=== PATIENT | male | born 1975 | race Caucasian/White ===

== ENCOUNTER 2020-04-12 02:30 | Emergency (ER) | payer OTHER, SELFPAY ==
--- NOTE | ~2020-04-12 | CT_ITS ---
EXAMINATION: CT abdomen pelvis wo con EXAM DATE: 04/12/2020 04:02 INDICATION: Abdominal pain for a day. TECHNIQUE: Spiral CT of the abdomen and pelvis was performed without contrast. Axial, coronal and sag ittal images were reviewed. The dose-length product (DLP) for this examination was 511.61 mGy-cm. T he exposure was tailored according to patient size (auto mA exposure control), and iterative reconstr uction (ASIR) was used as additional dose reduction technique. There is no prior study for compariso n. FINDINGS: There is no nephrolithiasis or hydronephrosis. The prostate is unremarkable. The bladder is unremarkable. Geographic shaped 2 cm region in the right liver lobe peripherally most likely foca l region of hepatic steatosis The spleen, adrenal glands and pancreas are unremarkable. Gallbladder is unremarkable. No biliary obstruction. There is no retroperitoneal or pelvic lymphadenopathy. T here is mild scattered arteriosclerotic disease. The appendix is not positively visualized. There is no pericecal inflammatory change to suggest appe ndicitis. The stomach and small bowel are unremarkable. There is expected amount of colonic stool. No free intraperitoneal gas. The heart is normal in size. There are no pericardial or pleural e ffusions. The lung bases are unremarkable. There are no osteoblastic or osteolytic lesions identifi ed. There is chronic L5 spondylolysis with a few millimeters anterolisthesis L5 on S1. IMPRESSION: 1. No nephrolithiasis, hydronephrosis or acute intra-abdominal findings. Reviewed, dictated and finalized at location . ESSIONAL PROGRAMMER ANALYST
--- NOTE | ~2020-04-12 | CT_ITS ---
EXAMINATION: CT brain wo con DATE: 04/12/2020 08:14 INDICATION: Dizziness, vomiting, numbness and tingling. TECHNIQUE: Computed tomography (CT) of the head was performed without intravenous contrast. Sagittal and coronal reconstructions were performed. The mA was adjusted according to patient size. Iterative reconstruction technique was employed. The dose-length product was 605.33 mGy-cm. COMPARISON: None FINDINGS: No acute intracranial hemorrhage, acute infarction or abnormal extra axial fluid collection. Ventricl es are normal and symmetric. No mass/mass effect. Moderate mucosal thickening throughout the paranasa l sinuses. Small right mastoid effusion. The visualized portions of the orbits are normal. IMPRESSION: 1. No acute intracranial process. Reviewed, dictated and finalized at location A. ER PICKER
[2020-04-12 02:30] VITALS: BP 147/118; PULSE 96; RESP 20; TEMP 36.9; O2SAT 97
--- NOTE | 2020-04-12 02:47 | ED.ABDPAIN ---
HPI - Abdominal Pain General Chief Complaint: Abdominal Pain Time Seen by Provider: 04/12/20 02:35 Source: patient Mode of arrival: ambulatory Limitations: no limitations History of Present Illness HPI narrative: Patient comes in with complaints of abdominal pain. This is in the right flank, severe and ongoing since about 11pm. He is a poor historian not answering questions well, mostly just moaning. Related Data Home Medications Medication Instructions Recorded Confirmed No Home Medications 04/12/20 04/12/20 Allergies Allergy/AdvReac Type Severity Reaction Status Date / Time No Known Allergies Allergy Unverified 03/13/18 04:56 Review of Systems Constitutional: Constitutional: Reports no additional constitutional complaints Eyes: Eyes: Reports no additional eye complaints ENT: Reports system reviewed and no additional complaints, except as documented Cardiovascular: Cardiovascular: Reports no additional cardiovascular complaints Respiratory: Respiratory: Reports no additional respiratory complaints Gastrointestinal: Gastrointestinal: Reports no additional gastrointestinal complaints Genitourinary: Genitourinary: Reports no additional male genitourinary complaints Musculoskeletal: Musculoskeletal: Reports no additional musculoskeletal complaints Integumentary/Breasts: Skin/Breast: Reports system reviewed and no additional complaints, except as docu Neurologic: Reports system reviewed and no additional complaints, except as documented Psychiatric: Psychiatric: Reports no additional psychiatric complaints Endocrine: Endocrine: Reports no additional endocrine complaints Hematologic/Lymphatic: Hematologic/Lymphatic: Reports no additional hematologic/lymphatic complaints Allergic/Immunologic: Allergic/Immunologic: Reports no additional allergic/immunologic complaints [facility] Past Medical History Medical History (Updated 04/12/20 @ 06:40 by Maximilian Christine MD) No significant medical problems Surgical History Surgical History No significant past surgical history Family History Family History (Updated 04/12/20 @ 04:19 by Maximilian Christine MD) Father Acute myocardial infarction Social History Social History (Updated 04/12/20 @ 04:20 by Maximilian Christine MD) Smoking status: Current every day smoker Tobacco type: cigarettes Alcohol intake: current Substance use: never Exam Const: General: no acute distress and alert HENMT: Head: normal to inspection Eyes: Conjunctivae: conjunctivae normal Neck: Neck: normal visual inspection Chest: Chest palpation & inspection: normal inspection of the chest Resp: Effort & Inspection: normal respiratory effort Auscultation: clear to auscultation bilaterally Cardio: Rate: regular rate Rhythm: regular rhythm GI: GI Palp: Yes Soft to palpation Other: nontender Skin: General skin exam: normal color Neuro: General: patient oriented x3 Speech: Abnormal speech present Extrem: General: normal to inspection Psych: Appearance: grossly normal Mental Status: mental status grossly normal Thought content: Yes Normal thought content present Course Course Emergency Course: labs and CT abdomen and pelvis were reviewed. He was given 2 liters of fluid for his elevated lactic acid. He appears to be improved. Vital Signs Vital signs: Vital Signs Temperature 36.9 C 04/12/20 02:30 Pulse Rate 96 04/12/20 02:30 Respiratory Rate 20 04/12/20 02:30 Blood Pressure 147/118 H 04/12/20 02:30 Pulse Oximetry 97 04/12/20 02:30 Temperature 36.9 C 04/12/20 02:30 Pulse Rate 96 04/12/20 02:30 Respiratory Rate 20 04/12/20 02:30 Blood Pressure 147/118 H 04/12/20 02:30 Pulse Oximetry 97 04/12/20 02:30 MDM - Abdominal Pain Lab Data Result diagrams: 04/12/20 03:49 04/12/20 03:49 Labs: Lab Results 04/12/20 04/12/20 04/12/20 Range/Units 03:4
[2020-04-12] MEDS: KETOROLAC 30 MG/ML VIAL (*BKC) IV PUSH (02:49)
[2020-04-12] MEDS: ONDANSETRON INJ 4 MG/2 ML VIAL IV PUSH (02:59)
[2020-04-12] MEDS: HYDROmorphone HCL INJ (*CRX) 2 MG/ML VIAL 1 MG IV PUSH (03:24)
[2020-04-12 03:57] LABS: Basophils Absolute Auto 0.06 K/mm3 (0.00-0.10); Basophils Percent Auto 0.5 % (0.0-1.0); Eosinophils Absolute Auto 0.17 K/mm3 (0.02-0.50); Eosinophils Percent Auto 1.4 % (1.0-6.0); Hematocrit 45.4 % (40.0-54.0); Hemoglobin 15.8 g/dL (14.0-18.0); Immature Granulocyte Absolute 0.05 K/mm3 (0.00-0.00); Immature Granulocyte Percent A 0.4 % (0.0-0.0); Lymphocytes Absolute Auto 1.71 K/mm3 (1.10-4.50); Lymphocytes Percent Auto 13.8 % (18.0-42.0); Mean Corpuscular HGB Conc 34.8 g/dL (32.0-36.0); Mean Corpuscular Hemoglobin 30.6 pg (27.0-31.0); Mean Corpuscular Volume 87.8 fL (78.0-102.0); Mean Platelet Volume 9.8 fl (8.7-11.0); Monocytes Absolute Auto 0.77 K/mm3 (0.10-0.90); Monocytes Percent Auto 6.2 % (2.0-11.0); Neutrophils Absolute Auto 9.7 K/mm3 (1.7-7.2); Neutrophils Percent Auto 77.7 % (50.0-70.0); Platelet Count Result 308 K/mm3 (150-420); Red Blood Count 5.17 M/mm3 (4.70-6.10); Red Cell Distribution Width 12.8 % (11.6-14.4); White Blood Count 12.4 K/mm3 (4.8-10.8)
[2020-04-12 04:12] LABS: Alanine Aminotransferase 36 U/L (16-63); Albumin Level 3.8 g/dL (3.4-5.0); Alkaline Phosphatase 55 U/L (46-116); Anion Gap 11 mmol/L (8-16); Aspartate Amino Transferase 14 U/L (15-37); Bilirubin,Total 0.3 mg/dL (0.00-1.00); Blood Urea Nitrogen 14 mg/dL (7-18); Calcium 8.8 mg/dL (8.5-10.1); Carbon Dioxide 24 mmol/L (21-32); Chloride 104 mmol/L (98-108); Estimated Glomerular Filt Rate > 60; Glucose 113 mg/dL (70-99); Osmolality Calculated 289 mOsm/kg (285-295); Potassium 3.5 mmol/L (3.5-5.1); Sodium 139 mmol/L (136-145); Total Protein 7.2 g/dL (6.4-8.2)
[2020-04-12 04:52] LABS: Ethanol 3 mg/dL (0-6); Lipase 100 U/L (73-393)
--- NOTE | 2020-04-12 04:53 | PC.NURSE ---
pt crawled out of bed, drinking from faucet after told nothing to et or drink. assisted back to bed.
--- NOTE | 2020-04-12 04:54 | PC.NURSE ---
pt states last meal was roaman noodles, spam and oatmeal cookies. asked where pt sleeps, states does it matter .
[2020-04-12 05:00] LABS: Lactic Acid Reflex 3.3 mmol/L (0.4-2.0)
[2020-04-12 05:03] LABS: Add Urine Microscopic? YES; Appearance Urine Clear (Clear); Bilirubin Urine Negative (Negative); Blood Urine Negative (Negative); Color Urine Yellow (Yellow); Glucose Urine UA Negative (Negative); Ketones Urine Trace (Negative); Leukocyte Esterase Ur Negative (Negative); Nitrate Urine Negative (Negative); Protein Urine 1+ (Negative); pH Urine >=9.0 (5.0-8.0)
[2020-04-12 05:08] LABS: Amphetamine Screen Urine Negative (Negative); Barbiturate Screen Urine Negative (Negative); Benzodiazepines Screen Urine Negative (Negative); Cannabinoid Screen Urine Positive (Negative); Cocaine Screen Urine Positive (Negative); Methadone Screen Urine Negative (Negative); Opiate Screen Urine Positive (Negative); Phencyclidine Screen Urine Negative (Negative); RBC Urine 0-2 /hpf (0-2); Squamous Epithelial Cell Urine None seen /hpf (Few); WBC Urine 0-3 /hpf (0-3)
[2020-04-12 05:09] LABS: Bacteria Urine None seen /hpf; Mucus Urine Few /lpf
--- NOTE | 2020-04-12 05:13 | PC.NURSE ---
pt sleeping per cot, no moaning or groaning.
[2020-04-12] MEDS: SODIUM CHLORIDE 0.9% IV 1,000 ML 999 ML IV CONT ×2 (05:29→06:40)
[2020-04-12] MEDS: SODIUM CHLORIDE 0.9% IV 500 ML 999 ML IV CONT (06:36)
--- NOTE | 2020-04-12 06:44 | PC.NURSE ---
REMAINS SLEEPING, OPENS EYES UPON ENTERING ROOM.
[2020-04-12 06:45] VITALS: BP 117/70; PULSE 92; RESP 20; O2SAT 96
--- NOTE | 2020-04-12 07:42 | PC.NURSE ---
SPOKE WITH EMPLOYER/FRIEND. WILL [employer] WITH READY FOR DISCHARGE.
[2020-04-12 07:44] LABS: Reflex Lactic Acid Yes or No Add Lactic
--- NOTE | 2020-04-12 08:06 | PC.NURSE ---
HEAD CT COMPLETED. DRANK 240 WATER WITHOUT EMESIS. CONTINUES WITH ABDOMINAL PAIN , RT FLANK PAIN. STATES HAS FAMILY HISTORY WITH CARDIAC ISSUES.
--- NOTE | 2020-04-12 08:09 | PC.NURSE ---
FOOD TRAY ORDERED
[2020-04-12 08:15] LABS: Lactic Acid 1.4 mmol/L (0.4-2.0)
--- NOTE | 2020-04-12 08:23 | ECG_ITS ---
Measurements Intervals [place] Rate: 70 P: 48 NC: 126 QRS: 59 QRSD: 94 T: 59 QT: 380 QTc: 410 Interpretive Statements SINUS RHYTHM INCOMPLETE RIGHT BUNDLE BRANCH BLOCK BASELINE WANDER- V1-V3 BORDERLINE ECG Electronically Signed On 04-12-2020 9:00:42 FORMAL WEAR RENTAL CLERK by Moises Porter D.O.
--- NOTE | 2020-04-12 08:41 | PC.NURSE ---
PT EATING EGGS , TOAST, COFFEE.
[2020-04-12 08:47] LABS: Troponin I 5.8 ng/L (0.00-60.4)
[2020-04-12 09:50] VITALS: BP 126/85; PULSE 87; RESP 20; TEMP 36.2; O2SAT 98
== END 2020-04-12 09:55 | disposition home or self-care (01) ==
PROVIDERS: Emergency Medicine; Emergency Provider Emergency Medicine
DX: R11.2 Nausea with vomiting, unspecified (principal)
CPT/HCPCS: 36415; 70450; 74176; 80053; 80307; 81001; 83605; 83690; 84484; 85025; 93005; 96361; 96374; 96375; 99283; 99284; J1170; J1885; J2405; J7030; J7040

== ENCOUNTER 2020-04-15 02:09 | Inpatient (IN) | payer OTHER, SELFPAY ==
[2020-04-15] VITALS (16 sets, daily range): BP systolic 112–160; BP diastolic 67–99; PULSE 68–96; RESP 11–22; TEMP 36.1–36.8; O2SAT 96–100; BMI 26.7
--- NOTE | ~2020-04-15 | US_ITS ---
EXAMINATION: US right upper quadrant DATE: 04/15/2020 09:37 INDICATION: Right upper quadrant pain TECHNIQUE: Multiple grayscale and Doppler ultrasound images of the abdomen were obtained. COMPARISON: None available FINDINGS: Bowel gas obscures visualization of the pancreas. The visualized portions of the pancreas a re unremarkable. The liver is normal with normal echogenicity and echotexture. No surface nodularity. Normal hepatopetal flow in the main portal vein. There are multiple stones in the gallbladder. Thick ened gallbladder wall measures up to 6 mm. There is a small amount of pericholecystic fluid. The norm al common bile duct measures 5 mm. Sonographic Polanco sign is positive. IMPRESSION: 1. Cholelithiasis with acute cholecystitis. Reviewed, dictated and finalized at location A. TY ASSOCIATE
--- NOTE | ~2020-04-15 | CT_ITS ---
EXAMINATION: CT abdomen pelvis wo con DATE: 04/15/2020 02:42 INDICATION: Right upper quadrant pain TECHNIQUE: Computed tomography (CT) of the abdomen and pelvis was performed without intravenous contr ast. The dose-length product (DLP) was 507.22 mGy-cm. Automated exposure control and iterative recons truction technique were employed. COMPARISON: 04/12/2020 FINDINGS: Minimal dependent atelectasis is present in the lung bases. The heart size is normal. There is a small sliding hiatal hernia. The liver, spleen, pancreas, and adrenal glands. There is mild gal lbladder wall thickening and mild pericholecystic fat stranding. The kidneys are unremarkable. No pat hologically enlarged abdominal or pelvic lymph nodes are identified. There is no free intraperitoneal gas or evidence of bowel obstruction. There is a small volume of ascites in the pelvis. There are bi lateral L5 pars defects with grade 1 anterolisthesis of L5 on S1. A small fat-containing umbilical he rnia is noted. Bilateral hydroceles are noted. IMPRESSION: 1. CT findings consistent with acute cholecystitis. Reviewed, dictated and finalized at location A. RIFUGAL OPERATOR
[2020-04-15 02:33] LABS: Basophils Absolute Auto 0.1 K/mm3 (0.0-0.1); Basophils Percent Auto 0.3 % (0.2-1.2); Eosinophils Absolute Auto 0.1 K/mm3 (0-0.3); Eosinophils Percent Auto 0.6 % (0-4.4); Hematocrit 46.2 % (42.0-52.0); Hemoglobin 15.9 g/dL (14.0-18.0); Immature Granulocyte Percent A 0.6 % (0-0.5); Mean Corpuscular HGB Conc 34.4 g/dl (32-36); Mean Corpuscular Hemoglobin 30.7 pg (26-34); Mean Corpuscular Volume 89.2 fl (80-100); Mean Platelet Volume 9.6 fl (7.4-10.4); Monocytes Absolute Auto 1.3 K/mm3 (0.1-0.6); Monocytes Percent Auto 7.3 % (2.6-8.5); Neutrophils Absolute Auto 13.9 K/mm3 (1.3-6.7); Neutrophils Percent Auto 80.2 % (45.5-73.1); Platelet Count Result 260 k/mm3 (150-375); Red Blood Count 5.18 M/mm3 (4.6-6.20); White Blood Count 17.3 K/mm3 (4.5-10.0)
[2020-04-15 02:45] LABS: Lactic Acid Reflex 2.3 mmol/L (0.7-2.1)
[2020-04-15 02:46] LABS: Potassium 3.8 mmol/L (3.4-5.0)
--- NOTE | 2020-04-15 03:00 | PC.NURSE ---
RN in to medicate pt. Pt. told RN to hurry up. RN informed Pt. that I am going as fast as I can. I also informed pt. he did not need to talk to this RN this way. ED registration in to ask pt. questions. Pt. states It's all in the chart. Come on I can't keep doing this. RN informed pt. that his chart is not up to date and that he needs to answer all of the questions as best as he can. Pt unwilling to cooperate or answer questions appropriately.
[2020-04-15] MEDS: SODIUM CHLORIDE 0.9% IV 1,000 ML 999 ML IV CONT (03:02)
[2020-04-15] MEDS: KETOROLAC 30 MG/ML VIAL (*BKC) IV PUSH (03:03)
[2020-04-15] MEDS: MORPHINE SULFATE (*CRX) 4 MG/ML INJ IV PUSH (03:03)
[2020-04-15] MEDS: ONDANSETRON INJ 4 MG/2 ML VIAL IV PUSH (03:07)
[2020-04-15 03:16] LABS: Alanine Aminotransferase 39 U/L (4-50); Albumin Level 4.1 g/dL (3.5-5.1); Alkaline Phosphatase 60 U/L (38-126); Anion Gap 11 mmol/L (8-16); Aspartate Amino Transferase 37 U/L (17-59); Bilirubin,Total 0.9 mg/dL (0.2-1.3); Blood Urea Nitrogen 16 mg/dL (9-20); Calcium 9.1 mg/dL (8.4-10.2); Carbon Dioxide 25 mmol/L (22-30); Chloride 101 mmol/L (98-107); Estimated Glomerular Filt Rate > 60; Glucose 103 mg/dL (75-110); Sodium 137 mmol/L (137-145)
--- NOTE | 2020-04-15 03:30 | PC.NURSE ---
Pt. refuses to provide urine sample
[2020-04-15] MEDS: HYDROmorphone HCL INJ (*CRX) 1 MG/ML SYR IV PUSH ×2 (03:41→10:40)
[2020-04-15 03:51] LABS: Lipase 29 U/L (23-300)
--- NOTE | 2020-04-15 04:03 | ED.GENADULT ---
HPI - General Adult General Chief complaint: Back Pain/Injury Stated complaint: flank pain Time Seen by Provider: 04/15/20 02:12 History of Present Illness HPI narrative: Patient is a 44-year-old gentleman who presents emerged part with chief complaint of right-sided abdominal pain. Patient states the pain is severe and states is not improved by anything. The patient states he was seen at [place] recently had a CT scan and laboratory studies done at that time and was told that there was nothing wrong with him. Patient states he has been having nausea and vomiting reports severe pain that is not improved by anything. The patient denies fever denies chills denies diarrhea. Related Data Home Medications Medication Instructions Recorded Confirmed No Home Medications 04/12/20 04/12/20 Allergies Allergy/AdvReac Type Severity Reaction Status Date / Time No Known Allergies Allergy Unverified 03/13/18 04:56 Review of Systems Review of Systems: Narrative: A 10 system review of systems was completed on the patient and is negative except for what is stated in the HPI. Nursing and ancillary documentation was reviewed. COUNT INCLUDES THE [facility] Past Medical History Medical History No significant medical problems Surgical History Surgical History No significant past surgical history Family History Family History Father Acute myocardial infarction Social History Social History Smoking status: Current every day smoker Tobacco type: cigarettes Alcohol intake: current Substance use: never Exam Narrative: Exam Narrative: GENERAL: Well-appearing, well-nourished, in moderate distress from pain. HEAD: Normocephalic, atraumatic. EYES: PERRLA and EOMI. ENT: Nares clear, no rhinorrhea or epistaxis. Mucous membranes moist. NECK: Supple. CHEST: Clear to auscultation. No respiratory distress. HEART: Regular rate and rhythm. No murmur heard. Normal peripheral pulses. ABDOMEN: Soft, tender to palpation in the right upper quadrant, nondistended, normal active bowel sounds. EXTREMITIES: Normal range of motion. No edema. SKIN: Warm, dry, no rash. NEURO: No focal deficits. Alert and oriented x3. PSYCH: Normal mood and affect. Course Course Emergency Course: Laboratory studies were obtained on the patient which showed him to have an elevated white blood cell count liver enzymes were within normal limits and lipase was normal. CT scan of the abdomen pelvis showed evidence of a thickened gallbladder and inflammation around the gallbladder consistent with acute cholecystitis. Patient's pain was controlled in the emergency room and the case was discussed with the surgeon on-call and the patient will be admitted to the surgical service he was started on Zosyn in the emergency department Vital Signs Vital signs: Vital Signs Temperature 36.7 C 04/15/20 02:09 Pulse Rate 90 04/15/20 02:09 Respiratory Rate 12 04/15/20 02:09 Blood Pressure 136/87 04/15/20 02:09 Pulse Oximetry 100 04/15/20 02:09 Temperature 36.7 C 04/15/20 02:09 Pulse Rate 90 04/15/20 02:09 Respiratory Rate 12 04/15/20 02:09 Blood Pressure 136/87 04/15/20 02:09 Pulse Oximetry 100 04/15/20 02:09 Medical Decision Making Vital Signs Vital Signs: Vital Signs Temperature 36.7 C 04/15/20 02:09 Pulse Rate 90 04/15/20 02:09 Respiratory Rate 12 04/15/20 02:09 Blood Pressure 136/87 04/15/20 02:09 Pulse Oximetry 100 04/15/20 02:09 Temperature 36.7 C 04/15/20 02:09 Pulse Rate 90 04/15/20 02:09 Respiratory Rate 12 04/15/20 02:09 Blood Pressure 136/87 04/15/20 02:09 Pulse Oximetry 100 04/15/20 02:09 Lab Data Result diagrams: 04/15/20 02:27 04/15
--- NOTE | 2020-04-15 04:45 | PC.NURSE ---
Pt. refuses to urinate.
--- NOTE | 2020-04-15 05:05 | ADMGEN ---
This patient, Raimundo Ortiz, was admitted to 3 [facility] Surg Room 327-01. Patient/family oriented to hospital policies and general routines including ID bracelet, bed and alarms, visiting hours, pain management, procedures, bathroom and other care routines, personal items, smoking policy, room service/diet, and visiting hours. Information on how to activate the Rapid Response Team has been discussed. Patient/Family are encouraged to report perceived risks to care and to ask questions if they do not understand what they are told or what they should do.
[2020-04-15] MEDS: SODIUM CHLORIDE 0.9% IV 1,000 ML 125 ML IV CONT (05:09)
[2020-04-15 05:31] LABS: Reflex Lactic Acid Yes or No Add Lactic
[2020-04-15 06:26] LABS: Lactic Acid 0.9 mmol/L (0.7-2.1)
[2020-04-15] MEDS: HYDROmorphone HCL INJ (*CRX) 1 MG/ML SYR 0.5 MG IV PUSH ×2 (07:47→12:41)
--- NOTE | 2020-04-15 12:12 | PM.IMHP ---
H&P: HPI History of Present Illness Date/Time: 04/15/20 12:12 Chief Complaint: Right upper quadrant pain Narrative: Raimundo Ortiz is a 44 year old male who presented to the emergency department with right upper quadrant abdominal pain for the past 3 days. His pain started more in his back on 04/12. He did not identify any particular food that he ate that could have caused the pain. He went to [facility] on 04/[address] scan at that time was normal. He was discharged home but he states his symptoms persisted. He was nauseated and vomited yesterday. He denies any fevers or chills. He has never had symptoms like this in the past. He presented to the emergency department this morning with persistent pain and a repeat CT today showed evidence of gallbladder wall thickening suggestive of acute cholecystitis. Review of Systems Review of Systems: All systems reviewed & are unremarkable except as noted in HPI and below Eyes: Eyes: Denies change in vision ENT: Denies hearing loss, Denies neck pain and Denies sore throat Cardiovascular: Cardiovascular: Denies chest pain and Denies dyspnea Respiratory: Respiratory: Denies cough, Denies dyspnea and Denies wheezing Gastrointestinal: Gastrointestinal: Reports as per HPI Genitourinary: Genitourinary: Denies hematuria and Denies dysuria Musculoskeletal: Musculoskeletal: Denies arthralgias, Denies joint swelling and Denies neck pain Allergic/Immunologic: Allergic/Immunologic: Denies wheezing PMF Past Medical History Medical History No significant medical problems Surgical History Surgical History No significant past surgical history Family History Family History Father No problems noted. Mother Acute myocardial infarction Social History Social History Smoking packs per day: 1 Smoking cigarettes per day: 20.0 Years smoked: 25 Smoking pack-years: 25.00 Smoking status: Current every day smoker Tobacco type: cigarettes Alcohol intake: current Substance use: never Substance use type: does not use Gender identity (if verbalized by the patient): Male Spiritual care concerns: No Meds Home Medications and Allergies Home Medications Medication Instructions Recorded Confirmed Type No Home Medications 04/12/20 04/15/20 History Allergies Allergy/AdvReac Type Severity Reaction Status Date / Time No Known Allergies Allergy Unverified 04/15/20 05:34 Vital Signs Vital Signs - 24 hr 04/15/20 02:09 04/15/20 04:00 04/15/20 04:45 Temperature 36.7 C Pulse Rate 90 90 96 Respiratory Rate 12 15 12 Blood Pressure 136/87 112/69 117/79 Pulse Oximetry 100 98 98 04/15/20 05:05 04/15/20 07:53 Temperature 36.8 C Pulse Rate 90 90 Respiratory Rate 20 20 Blood Pressure 126/68 Pulse Oximetry 100 100 Exam Const: General: alert; No acute distress Orientation/consciousness: patient oriented x3 Limitations: no limitations HENMT: Head: normocephalic and atraumatic Ears: hearing grossly normal bilaterally General nose exam: Normal external nose present and Normal nares present Mouth: Yes Normal oral and palatal mucosa present and Yes moist mucous membranes Eyes: General: appearance normal, both eyes and all related structures Conjunctivae: conjunctivae normal Sclera: sclerae normal Pupils: Equal, round and reactive pupils present EOM: EOMs intact bilaterally Neck: Neck: normal visual inspection, full ROM, no lymphadenopathy, supple and no JVD Lymphatic: no lymphadenopathy noted Chest: Chest palpation & inspection: normal inspection of the chest Resp: Effort & Inspection: normal respiratory effort and able to speak in complete sentences Auscultation: clear to auscultation bilater
--- NOTE | 2020-04-15 12:21 | WPDANESEPP ---
Anes - Eval Pre Procedure Procedure: laparoscopic cholecystectomy Date/Time: 04/15/20 12:21 Preop Diagnosis: acute cholecystitis Pre Op Diagnosis: Acute Cholecystitis Patient Data Age: 44 Gender: M Height: 5 ft 11 in Weight: 86.9 kg Last Vital Signs Temp 36.8 C 04/15/20 05:05 Pulse 90 04/15/20 07:53 Resp 20 04/15/20 07:53 BP 126/68 04/15/20 05:05 Pulse Ox 100 04/15/20 07:53 Allergies Allergy/AdvReac Type Severity Reaction Status Date / Time No Known Allergies Allergy Unverified 04/15/20 05:34 Home Medications Medication Instructions Recorded Confirmed Type No Home Medications 04/12/20 04/15/20 History Laboratory Tests 04/15/20 04/15/20 04/15/20 02:26 02:27 02:27 WBC 17.3 K/mm3 H K/mm3 (4.5-10.0) RBC 5.18 M/mm3 M/mm3 (4.6-6.20) Hgb 15.9 g/dL g/dL (14.0-18.0) Hct 46.2 % % (42.0-52.0) MCV 89.2 fl fl (80-100) MCH 30.7 pg pg (26-34) MCHC 34.4 g/dl g/dl (32-36) RDW 13.0 % % (11.5-14.5) Plt Count 260 k/mm3 k/mm3 (150-375) MPV 9.6 fl fl (7.4-10.4) Immature Gran % (Auto) 0.6 % H % (0-0.5) Neut % (Auto) 80.2 % H % (45.5-73.1) Lymph % (Auto) 11.0 % L % (18.3-44.2) [place] % (Auto) 7.3 % % (2.6-8.5) Eos % (Auto) 0.6 % % (0-4.4) Baso % (Auto) 0.3 % % (0.2-1.2) Lymph # (Auto) 1.90 K/mm3 K/mm3 (0.9-3.2) [place] # (Auto) 1.3 K/mm3 H K/mm3 (0.1-0.6) Eos # (Auto) 0.1 K/mm3 K/mm3 (0-0.3) Baso # (Auto) 0.1 K/mm3 K/mm3 (0.0-0.1) Abs Immat Gran (auto) 0.10 K/mm3 H K/mm3 (0.00-0.031) Absolute Neuts (auto) 13.9 K/mm3 H K/mm3 (1.3-6.7) Absolute Nucleated RBC 0.0 K/mm3 K/mm3 (0.0-0.012) Nucleated RBC % 0.0 % % (0.0-0.2) Sodium 137 mmol/L mmol/L (137-145) Potassium 3.8 mmol/L mmol/L (3.4-5.0) Chloride 101 mmol/L mmol/L (98-107) Carbon Dioxide 25 mmol/L mmol/L (22-30) Anion Gap 11 mmol/L mmol/L (8-16) BUN 16 mg/dL mg/dL (9-20) Creatinine 0.90 mg/dL mg/dL (0.7-1.3) Estim Creat Clear Calc Not Reportable Estimated GFR > 60 (59 - ) Glucose 103 mg/dL mg/dL (75-110) Lactic Acid Calcium 9.1 mg/dL mg/dL (8.4-10.2) Total Bilirubin 0.9 mg/dL mg/dL (0.2-1.3) AST 37 U/L U/L (17-59) ALT 39 U/L U/L (4-50) Alkaline Phosphatase 60 U/L U/L (38-126) Total Protein 7.0 g/dL g/dL (6.3-8.2) Albumin 4.1 g/dL g/dL (3.5-5.1) Lipase 29 U/L U/L (23-300) 04/15/20 04/15/20 02:27 05:44 WBC RBC Hgb Hct MCV MCH MCHC RDW Plt Count MPV Immature Gran % (Auto) Neut % (Auto) Lymph % (Auto) [place] % (Auto) Eos % (Auto) Baso % (Auto) Lymph # (Auto) [place] # (Auto) Eos # (Auto) Baso # (Auto) Abs Immat Gran (auto) Absolute Neuts (auto) Absolute Nucleated RBC Nucleated RBC % Sodium Potassium Chloride Carbon Dioxide Anion Gap BUN Creatinine Estim Creat Clear Calc Estimated GFR Glucose Lactic Acid 2.3 mmol/L H mmol/L 0.9 mmol/L mmol/L (0.7-2.1) (0.7-2.1) Calcium Total Bilirubin AST ALT Alkaline Phosphatase Total Protein Albumin Lipase ECG: Measurements Intervals [place] Rate: 70 P: 48 SC: 126 QRS:
--- NOTE | 2020-04-15 13:25 | WPDHPUPDATE1 ---
History and Physical Update Update Date/Time: 04/15/20 13:25 History and Physical has been reviewed, including an updated exam of the patient. There are NO changes in the patient's condition. Risks, benefits, and alternatives have been discussed and questions answered. Patient agrees to proceed with procedure.
--- NOTE | 2020-04-15 14:28 | PC.NURSE ---
Patient down to OR at 1420.
[2020-04-15] MEDS: LACTATED RINGERS 1,000 ML 30 ML IV CONT (14:30)
[2020-04-15] MEDS: BUPIVACAINE HCL 0.5% PF 30 ML VIAL INFILTRATE (15:03)
--- NOTE | 2020-04-15 15:41 | PM.PROC ---
Procedure Note - Detailed Date of procedure: 04/15/20 Pre-op diagnosis: Acute Cholecystitis Post-op diagnosis: same Procedure performed: Laparoscopic Cholecystectomy Description of procedure: Procedure as well as risks, benefits, and alternatives were discussed with patient. Written consent was obtained and placed in chart prior to procedure. The patient was brought back to surgical suite. Patient was placed in supine position on operating table. Time-out was done to confirm patient and procedure. Patient was then intubated by the anesthesia department. Abdomen was prepped and draped in sterile fashion using chlorhexidine prep. 0.5% bupivacaine with epinephrine was infiltrated at each site of incision. An 11 millimeter vertical incision was made at the inferior portion of the umbilicus using a 15 blade scalpel. Blunt dissection was carried down to the linea alba. The linea alba was then incised using a 15 blade scalpel. The peritoneum was then bluntly entered. An 11 millimeter trocar was inserted and cabon dioxied insuflation was used to create a pneumoperitoneum. The camera was inserted and the abdomen was inspected. The patient was placed in reverse Trendelenberg position and rotated slightly to the left. A 5 millimeter incision was made in the epigastric region, and a 5 millimeter trocar was inserted under direct visualization. Two 5 millimeter incisions were made in the right upper quadrant, and two 5 millimeter trocars were inserted under direct visualization. The gallbladder was identified and grasped at the fundus and retracted superiorly. It was then grasped at the infundibulum retracted laterally. Careful dissection around the neck of the gallbladder was performed using blunt dissection with a [place] grasper and hook electrocautery. The cystic duct was identified, and a window was created behind it. The cystic artery was also identified and a window was created behind it. The critical view of safety was identified, visualizing the cystic duct running directly into the neck of the gallbladder, and the cystic artery running directly into the wall of the gallbladder. A 5 millimeter clip grocery clerk selling was then used to place 2 clips proximally and 1 clip distally on both the cystic duct and cystic artery. They were then both transected using endoscopic scissors. Once safely away from the gabrielle hepatitis, the gallbladder was dissected free from the liver bed using hook electrocautery. Hemostasis was achieved along the way. The gallbladder was removed completely and then removed through the umbilical port. The liver bed was then inspected. Hemostasis appeared adequate, and our clips appeared secure. The area was gently irrigated with sterile saline. No other abnormalities were seen. The patient was flattened out in bed, and 1 final inspection was made around the abdominal cavity. The ports were then removed under direct visualization, the camera was removed, and the pneumoperitoneum was released. The fascia of the umbilical incision was approximated using an 0 Vicryl [id number] suture. The skin of the incisions was approximated using 4-0 Monocryl subcuticular sutures. Exofin glue was applied on top. The patient was then awakened from anesthesia, extubated, and transferred to recovery. Anesthesia: GETA and local (0.5% bupivicaine with epinephrine) Surgeon: Donnell Wan DO Estimated blood loss (mL): 20 Pathology: yes (gallbladder) Complications: No immediate complications Condition: stable Disposition: floor Findings: This is a 44-year-old man who presented to the emergency department this morning with right upper quadrant pain for the past 3 days. He does not recall any certain food that caused this pain. He has never had pain like this in the past. CT in the emergency department showed evidence of a thickened gallbladder wall suggestive of acute cholecystitis. He was admitted for further treatment. Discussions were made with bubba
[2020-04-15] MEDS: fentaNYL CITRATE INJ (*CRX) 100 MCG/2 ML VIAL 25 MCG IV PUSH ×4 (16:22→16:40)
[2020-04-15] MEDS: LACTATED RINGERS 1,000 ML 100 ML IV CONT (18:10)
--- NOTE | 2020-04-15 18:54 | PC.NURSE ---
Patient returned to [facility] from surgery at 1715.
[2020-04-15] MEDS: HYDROcodone/acetaminophen (*CRX) 10-325 MG TABLET 1 TAB PO (20:54)
[2020-04-16 02:33] VITALS: BP 130/100; PULSE 82; RESP 22; TEMP 36.7; O2SAT 98
[2020-04-16 02:41] LABS: Add Urine Microscopic? YES; Appearance Urine Clear (Clear); Bilirubin Urine Negative (Negative); Blood Urine Negative (Negative); Color Urine Straw (Yellow); Glucose Urine UA 3+ mg/dL (Negative); Ketones Urine Negative (Negative); Leukocyte Esterase Ur Negative LEU/UL (Negative); Nitrate Urine Negative (Negative); Protein Urine Negative (Negative); Specific Grav Ur 1.008 (1.001-1.035); Urobilinogen Urine Negative mg/dL (<2.0); WBC Urine 0-3 /hpf
[2020-04-16] MEDS: HYDROcodone/acetaminophen (*CRX) 10-325 MG TABLET 1 TAB PO (04:13)
[2020-04-16] MEDS: HYDROmorphone HCL INJ (*CRX) 1 MG/ML SYR 0.5 MG IV PUSH (05:23)
[2020-04-16 07:44] LABS: Basophils Percent Auto 0.2 % (0.2-1.2); Eosinophils Percent Auto 0.1 % (0-4.4); Hemoglobin 13.3 g/dL (14.0-18.0); Immature Granulocyte Absolute 0.05 K/mm3 (0.00-0.031); Immature Granulocyte Percent A 0.4 % (0-0.5); Lymphocytes Absolute Auto 1.35 K/mm3 (0.9-3.2); Lymphocytes Percent Auto 11.2 % (18.3-44.2); Mean Corpuscular HGB Conc 34.1 g/dl (32-36); Mean Corpuscular Hemoglobin 30.1 pg (26-34); Mean Corpuscular Volume 88.2 fl (80-100); Mean Platelet Volume 9.8 fl (7.4-10.4); Monocytes Absolute Auto 0.9 K/mm3 (0.1-0.6); Monocytes Percent Auto 7.5 % (2.6-8.5); Neutrophils Absolute Auto 9.7 K/mm3 (1.3-6.7); Neutrophils Percent Auto 80.6 % (45.5-73.1); Platelet Count Result 280 k/mm3 (150-375); Red Blood Count 4.42 M/mm3 (4.6-6.20); Red Cell Distribution Width 12.8 % (11.5-14.5); White Blood Count 12.1 K/mm3 (4.5-10.0)
[2020-04-16 08:00] VITALS: BP 121/75; PULSE 83; RESP 18; TEMP 37.1; O2SAT 97
[2020-04-16 08:15] LABS: Anion Gap 6 mmol/L (8-16); Blood Urea Nitrogen 10 mg/dL (9-20); Calcium 8.5 mg/dL (8.4-10.2); Carbon Dioxide 26 mmol/L (22-30); Chloride 104 mmol/L (98-107); Estimated CRCL calculation 126 ml/min; Estimated Glomerular Filt Rate > 60; Glucose 130 mg/dL (75-110); Sodium 136 mmol/L (137-145)
[2020-04-16] MEDS: HYDROcodone/acetaminophen (*CRX) 5-325 MG TABLET 1 TAB PO (10:02)
[2020-04-16 12:00] VITALS: BP 133/75; PULSE 62; RESP 18; TEMP 36.5; O2SAT 100
--- NOTE | 2020-04-16 12:07 | PM.DS ---
DS: Admitting Diagnosis Admitting Diagnosis Admitting Diagnosis: Acute calculous cholecystitis DS: Discharge Diagnosis Discharge Diagnosis (1) Acute cholecystitis: Code(s): K81.0 - Acute cholecystitis Status: Acute DS: Summary Hospital Course Reason for hospitalization: Acute cholecystitis Hospital Course: This is a 44-year-old man who presented to the emergency department with right upper quadrant abdominal pain for the past 3 days. He was found to have evidence of acute cholecystitis on CT. He was admitted for further treatment. A gallbladder ultrasound was also obtained and this confirmed cholelithiasis with gallbladder wall thickening. He was taken urgently for laparoscopic cholecystectomy on 04/15/2020. Surgery was uncomplicated and he was returned to the surgical floor postoperatively. His diet and activity were gradually advanced as tolerated. On postop day 1, his pain was well controlled. He was tolerating a diet. He was discharged on postop day 1. Status at Discharge Functional status at discharge: independent ambulation Overall status at discharge: patient is progressing back to baseline Time Spent with Patient Time attestation: Total time spent providing and/or coordinating discharge services: Time spent: Less than 30 minutes Exam GI: Inspection: incision (Intact with Rich) GI Palp: Yes Soft to palpation and Yes Tenderness to palpation present (GI) (Incisional) DS: Data Data Completed and Pending Pending studies at discharge: Pending at discharge 04/15/20 14:59 Surgical [PTH] Routine Labs on day of discharge: Labs from last 24 hours 04/16/20 04/16/20 04/16/20 07:34 07:34 02:22 WBC 12.1 H RBC 4.42 L Hgb 13.3 L Hct 39.0 L MCV 88.2 MCH 30.1 MCHC 34.1 RDW 12.8 Plt Count 280 MPV 9.8 Immature Gran % (Auto) 0.4 Neut % (Auto) 80.6 H Lymph % (Auto) 11.2 L [place] % (Auto) 7.5 Eos % (Auto) 0.1 Baso % (Auto) 0.2 Lymph # (Auto) 1.35 [place] # (Auto) 0.9 H Eos # (Auto) 0.0 Baso # (Auto) 0.0 Abs Immat Gran (auto) 0.05 H Absolute Neuts (auto) 9.7 H Absolute Nucleated RBC 0.0 Nucleated RBC % 0.0 Sodium 136 L Potassium 4.0 Chloride 104 Carbon Dioxide 26 Anion Gap 6 L BUN 10 D Creatinine 0.70 Estim Creat Clear Calc 126 Estimated GFR > 60 Glucose 130 H Calcium 8.5 Urine Color Straw Urine Appearance Clear Urine pH 7.0 Ur Specific [place] 1.008 Urine Protein Negative Urine Glucose (UA) 3+ H Urine Ketones Negative Ur Blood (Man) Negative Urine Nitrate Negative Urine Bilirubin Negative Urine Urobilinogen Negative Leukocyte Esterase Rfl Negative Urine WBC 0-3 Discharge Plan Discharge Attending physician on discharge: Donnell Morales Consulting providers: Toño Mejía Discharging Clinician: Donnell Morales Patient Disposition: Home, Self-Care Activity: other - see discharge instructions Diet: other - see discharge instructions Wound Care Instructions: other - see discharge instructions Discharge Instructions: DISCHARGE INSTRUCTION SHEET FOR HERNIA, GALLBLADDER AND APPENDIX SURGERIES DR. MORALES PATIENT TO TAKE HOME 1. May shower in 24 hours, no soaking in bath x 2weeks. 2. Call office for: Wound increasingly painful or bleeding Vomiting Fever of greater than 101 degrees 3. If no bowel movement for three days, take 1 oz. (30 ml) Milk of Magnesia or MiraLax 17g 1 to 2 times daily. 4. No heavy lifting > 10-15 pounds x weeks for hernia repairs and 2 weeks for laparoscopic cholecystectomy or appendectomy. 5. No driving for 3 days or while taking narcotic pain medications. 6. Ice to surgical site for 48 hours (30 min on, then 30 min off). 7. Up walking 10-30 minutes three times per day. 8. Resume previous home medications. 9
== END 2020-04-16 14:30 | disposition home or self-care (01) | DRG 263 ==
LOC: ANHED 04:03 → ANH3MEDSUR 04:15
PROVIDERS: Admitting Provider Surgery; Emergency Provider Emergency Medicine; Visit Provider Surgery
PROC: 0FT44ZZ Resection of Gallbladder, Percutaneous Endoscopic Approach (ICD-10-PCS; CPT 47562; principal; 2020-04-15 14:30)
DX: K80.00 Calculus of gallbladder with acute cholecystitis without obstruction (principal); F17.210 Nicotine dependence, cigarettes, uncomplicated; Z28.21 Immunization not carried out because of patient refusal
CPT/HCPCS: 36415; 74176; 76705; 80048; 80053; 81001; 83605; 83690; 85025; 88304; 96361; 96374; 96375; 99285; A9270; J0131; J0330; J1100; J1170; J1885; J2250; J2270; J2405; J2543; J2704; J2710; J3010; J7030; J7120

== ENCOUNTER 2020-11-27 04:06 | Emergency (ER) | payer OTHER, SELFPAY ==
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
[2020-11-27 04:11] VITALS: BP 122/93; PULSE 88; RESP 15; O2SAT 98
[2020-11-27 04:55] VITALS: BP 124/86; PULSE 79; RESP 16; O2SAT 96
[2020-11-27] MEDS: ONDANSETRON INJ 4 MG/2 ML VIAL IV PUSH (04:56)
[2020-11-27] MEDS: MORPHINE SULFATE (*CRX) 4 MG/ML INJ IV PUSH ×2 (04:56→06:58)
--- NOTE | 2020-11-27 05:09 | PC.NURSE ---
pt not able to give a urine sample at this time.
[2020-11-27 05:14] LABS: Basophils Absolute Auto 0.1 K/mm3 (0.0-0.1); Basophils Percent Auto 0.5 % (0.2-1.2); Eosinophils Absolute Auto 0.2 K/mm3 (0-0.3); Eosinophils Percent Auto 2.4 % (0-4.4); Hematocrit 50.2 % (42.0-52.0); Hemoglobin 16.7 g/dL (14.0-18.0); Immature Granulocyte Absolute 0.05 K/mm3 (0.00-0.031); Immature Granulocyte Percent A 0.5 % (0-0.5); Lymphocytes Absolute Auto 2.59 K/mm3 (0.9-3.2); Lymphocytes Percent Auto 26.1 % (18.3-44.2); Mean Corpuscular HGB Conc 33.3 g/dl (32-36); Mean Corpuscular Volume 90.3 fl (80-100); Mean Platelet Volume 9.6 fl (7.4-10.4); Monocytes Absolute Auto 0.7 K/mm3 (0.1-0.6); Monocytes Percent Auto 7.2 % (2.6-8.5); Neutrophils Absolute Auto 6.3 K/mm3 (1.3-6.7); Neutrophils Percent Auto 63.3 % (45.5-73.1); Platelet Count Result 302 k/mm3 (150-375); Red Blood Count 5.56 M/mm3 (4.6-6.20); Red Cell Distribution Width 13.7 % (11.5-14.5); White Blood Count 9.9 K/mm3 (4.5-10.0)
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
[2020-11-27 05:29] LABS: Estimated CRCL calculation 110 ml/min; Estimated Glomerular Filt Rate > 60
[2020-11-27 05:52] VITALS: PULSE 84; RESP 22; O2SAT 99
[2020-11-27 05:52] LABS: Alanine Aminotransferase 72 U/L (4-50); Albumin Level 4.2 g/dL (3.5-5.1); Alkaline Phosphatase 56 U/L (38-126); Anion Gap 8 mmol/L (8-16); Aspartate Amino Transferase 58 U/L (17-59); Bilirubin,Total 0.7 mg/dL (0.2-1.3); Blood Urea Nitrogen 13 mg/dL (9-20); Calcium 8.5 mg/dL (8.4-10.2); Carbon Dioxide 24 mmol/L (22-30); Chloride 101 mmol/L (98-107); Estimated CRCL calculation 125 ml/min; Estimated Glomerular Filt Rate > 60; Glucose 98 mg/dL (65-110); Potassium 4.2 mmol/L (3.4-5.0); Sodium 133 mmol/L (137-145)
--- NOTE | 2020-11-27 05:55 | PC.NURSE ---
pt still unable to give urine sample at this time and refusing straight catheter.
--- NOTE | 2020-11-27 06:44 | PC.NURSE ---
pt still refusing urine sample.
[2020-11-27 06:59] VITALS: BP 125/87; PULSE 82; RESP 12; O2SAT 99
--- NOTE | 2020-11-27 07:42 | PC.NURSE ---
Assumed care. Pt sleeping until aroused.
[2020-11-27 08:16] LABS: Add Urine Microscopic? YES; Appearance Urine Clear (Clear); Bilirubin Urine Negative (Negative); Blood Urine Negative (Negative); Color Urine Yellow (Yellow); Glucose Urine UA Negative (Negative); Ketones Urine Negative (Negative); Leukocyte Esterase Ur Negative LEU/UL (Negative); Mucus Urine Rare /lpf; Nitrate Urine Negative (Negative); Protein Urine 1+ mg/dL (Negative); WBC Urine 0-3 /hpf
[2020-11-27 08:25] LABS: Specific Grav Ur 1.056 (1.001-1.035)
--- NOTE | 2020-11-27 09:15 | PC.NURSE ---
Sleeps unless aroused. In no distress.
[2020-11-27 09:57] VITALS: BP 149/89; PULSE 74; RESP 20; O2SAT 98
== END 2020-11-27 09:59 | disposition home or self-care (01) ==
PROVIDERS: Emergency Medicine; Emergency Provider Emergency Medicine
DX: S22.42XA Multiple fractures of ribs, left side, initial encounter for closed fracture (principal); V89.2XXA Person injured in unspecified motor-vehicle accident, traffic, initial encounter; F17.210 Nicotine dependence, cigarettes, uncomplicated
CPT/HCPCS: 36415; 71260; 72125; 74177; 80053; 81001; 85025; 96374; 96375; 96376; 99284; J2270; J2405; Q9967

== ENCOUNTER 2020-12-11 00:19 | Emergency (ER) | payer OTHER, SELFPAY ==
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
[2020-12-11 00:20] VITALS: BP 138/97; PULSE 102; RESP 20; TEMP 36.4; O2SAT 98
[2020-12-11] MEDS: IBUPROFEN 400 MG TABLET 800 MG PO (00:49)
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
[2020-12-11 01:23] VITALS: BP 124/87; PULSE 87; RESP 20; TEMP 36.3; O2SAT 97
== END 2020-12-11 01:28 ==
PROVIDERS: Emergency Provider Emergency Medicine
DX: S42.025D Nondisplaced fracture of shaft of left clavicle, subsequent encounter for fracture with routine healing (principal)
CPT/HCPCS: 73030; 99283; 99284; A4565; A9270

== ENCOUNTER 2021-04-25 17:29 | Emergency (ER) | payer OTHER, SELFPAY ==
--- NOTE | ~2021-04-25 | CT_ITS ---
EXAMINATION: CT abdomen pelvis w con DATE: 04/25/2021 21:33 INDICATION: Abdominal pain, upper back pain. Shortness of breath. TECHNIQUE: Computed tomography (CT) of the abdomen and pelvis was performed with 100 cc Omnipaque 350 intravenous contrast. Automated exposure control and iterative reconstruction technique were employe d. Exam dose: 527.45 mGy-cm total exam DLP. COMPARISON: 11/27/2020 CT chest abdomen pelvis FINDINGS: The lung bases are clear. Normal heart size. No pericardial or pleural effusion. Status post cholecystectomy. No gallbladder wall thickening or abnormal pericholecystic fluid or str anding. No bile duct or pancreatic duct dilatation. 2.4 cm right hepatic hemangioma with discontinuous peripheral contrast enhancement. No adrenal or renal space occupying mass lesion . No urinary tract calculus or hydroureteronephrosis . Normal caliber of the abdominal aorta. No intraperitoneal or retroperitoneal or pelvic mass lesion o r lymphadenopathy. No bowel obstruction or free air. Small fat-containing abdominal hernia. Bilateral L5 pars interarticularis defects with minimal grade 1 anterolisthesis at L5-S1. No suspicious osteolytic or osteoblastic lesions are noted. IMPRESSION: Hepatic hemangioma, stable Status post cholecystectomy Reviewed, dictated and finalized at Location A. Reviewed, dictated and finalized at location J. AL MARKETING SPECIALIST
--- NOTE | ~2021-04-25 | XR_ITS ---
XR chest 2V DATE: 04/25/2021 18:15 INDICATION: Left chest pain. Shortness of breath. Smoker. TECHNIQUE: PA and lateral views COMPARISON: 11/27/2020 CT chest abdomen pelvis FINDINGS: Healing left clavicular shaft and left rib fractures. No pneumothorax or pleural effusion. There is mild atelectasis in the lower lung zones. The lungs otherwise appear clear. Normal heart size. No hilar or mediastinal enlargement. Surgical clips, right upper quadrant, likely due to cholecystectomy. IMPRESSION: Healing left clavicular shaft and left rib fractures Mild atelectasis in the lower lung zones Reviewed, dictated and finalized at location J. MOBILE DEVELOPER
--- NOTE | 2021-04-25 17:31 | ECG_ITS ---
Measurements Intervals [place] Rate: 85 P: 10 IA: 110 QRS: 38 QRSD: 93 T: 53 QT: 344 QTc: 410 Interpretive Statements SINUS RHYTHM WITH SHORT IA INTERVAL BASELINE ARTIFACT- I, II BORDERLINE ECG Electronically Signed On 04-25-2021 20:27:36 MUSIC VIDEO PRODUCER by Moises Porter D.O.
[2021-04-25 17:32] VITALS: BP 143/95; PULSE 91; RESP 18; TEMP 36.2; O2SAT 100
[2021-04-25 17:59] LABS: Basophils Absolute Auto 0.1 K/mm3 (0.0-0.1); Basophils Percent Auto 0.7 % (0.2-1.2); Eosinophils Absolute Auto 0.2 K/mm3 (0-0.3); Eosinophils Percent Auto 2.4 % (0-4.4); Hematocrit 53.6 % (42.0-52.0); Hemoglobin 17.9 g/dL (14.0-18.0); Immature Granulocyte Absolute 0.07 K/mm3 (0.00-0.031); Immature Granulocyte Percent A 0.8 % (0-0.5); Lymphocytes Absolute Auto 3.41 K/mm3 (0.9-3.2); Lymphocytes Percent Auto 39.7 % (18.3-44.2); Mean Corpuscular HGB Conc 33.4 g/dl (32-36); Mean Corpuscular Hemoglobin 29.2 pg (26-34); Mean Corpuscular Volume 87.4 fl (80-100); Mean Platelet Volume 9.1 fl (7.4-10.4); Monocytes Absolute Auto 0.7 K/mm3 (0.1-0.6); Monocytes Percent Auto 8.3 % (2.6-8.5); Neutrophils Absolute Auto 4.1 K/mm3 (1.3-6.7); Neutrophils Percent Auto 48.1 % (45.5-73.1); Platelet Count Result 233 k/mm3 (150-375); Red Blood Count 6.13 M/mm3 (4.6-6.20); Red Cell Distribution Width 14.6 % (11.5-14.5); White Blood Count 8.6 K/mm3 (4.5-10.0)
[2021-04-25 18:10] LABS: Alanine Aminotransferase 64 U/L (4-50); Albumin Level 4.3 g/dL (3.5-5.1); Alkaline Phosphatase 67 U/L (38-126); Anion Gap 9 mmol/L (8-16); Aspartate Amino Transferase 36 U/L (17-59); Bilirubin,Total 0.4 mg/dL (0.2-1.3); Blood Urea Nitrogen 11 mg/dL (9-20); Calcium 8.7 mg/dL (8.4-10.2); Carbon Dioxide 26 mmol/L (22-30); Chloride 103 mmol/L (98-107); Estimated CRCL calculation 110 ml/min; Estimated Glomerular Filt Rate > 60; Glucose 107 mg/dL (65-110); Lipase 43 U/L (23-300); Potassium 4.3 mmol/L (3.4-5.0); Sodium 138 mmol/L (137-145)
[2021-04-25 18:15] LABS: Partial Thromboplastin Time 32.9 SECONDS (22.3-36.8); Prothrombin Time 13.2 Seconds (11.1-14.7)
[2021-04-25 18:21] LABS: Troponin I < 0.012 ng/mL (0.000-0.034)
--- NOTE | 2021-04-25 19:49 | PC.NURSE ---
Pt c/o generalized pain all over body. Pt reports the pain jumps around and is currently in his lower back.
[2021-04-25 19:54] VITALS: BP 125/94; PULSE 84; RESP 14; O2SAT 100
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
[2021-04-25 20:13] LABS: CRP 0.8 mg/dL (<1.0); Creatine Kinase 96 U/L (55-170)
[2021-04-25 20:18] LABS: D Dimer 0.35 ug/mL (<0.48)
[2021-04-25 21:11] LABS: Add Urine Microscopic? YES; Appearance Urine Cloudy (Clear); Bilirubin Urine Negative (Negative); Blood Urine Negative (Negative); Color Urine Yellow (Yellow); Glucose Urine UA Negative (Negative); Ketones Urine Negative (Negative); Leukocyte Esterase Ur Negative LEU/UL (Negative); Mucus Urine Heavy /lpf; Nitrate Urine Negative (Negative); Protein Urine 1+ mg/dL (Negative); Specific Grav Ur 1.026 (1.001-1.035); Squamous Epithelial Cell Urine Rare /hpf (Few)
[2021-04-25] MEDS: KETOROLAC 30 MG/ML VIAL (*BKC) IV PUSH (21:15)
[2021-04-25 21:45] LABS: SARS-CoV-2 RNA PCR Positive
[2021-04-25 22:03] LABS: Troponin I < 0.012 ng/mL (0.000-0.034)
[2021-04-25 22:14] VITALS: BP 111/85; PULSE 77; RESP 15
[2021-04-25 22:24] VITALS: O2SAT 98
== END 2021-04-25 22:26 | disposition home or self-care (01) ==
PROVIDERS: Emergency Provider General Practice
DX: U07.1 COVID-19 (principal); F17.210 Nicotine dependence, cigarettes, uncomplicated
CPT/HCPCS: 36415; 71046; 74177; 80053; 81001; 82550; 83690; 84484; 85025; 85380; 85610; 85730; 86140; 87804; 93005; 96374; 99284; C9803; J1885; Q9967; U0003; U0005

== ENCOUNTER 2021-10-24 17:17 | Emergency (ER) | payer OTHER, SELFPAY ==
[2021-10-24 17:18] VITALS: BP 152/102; PULSE 104; RESP 16; TEMP 36.6; O2SAT 99
--- NOTE | 2021-10-24 17:28 | ED.GENADULT ---
HPI - General Adult General Chief complaint: Skin/Abscess/Foreign Body Stated complaint: bite on arm Time Seen by Provider: 10/24/21 17:28 History of Present Illness HPI narrative: 46-year-old male presents the emergency room with a bite to his left forearm. States he noticed a small abscess 2 days ago, progressively got bigger and more painful. States the abscess has been draining purulent discharge since this morning. Related Data Allergies Allergy/AdvReac Type Severity Reaction Status Date / Time No Known Allergies Allergy Verified 04/25/21 19:52 Review of Systems Review of Systems: CONSTITUTIONAL: Denies fever, chills, or sweats. EYES: Denies visual changes, redness, or discharge. ENT: Denies rhinorrhea, congestion, sore throat, or otalgia. CARDIOVASCULAR: Denies chest pain, palpitations, or edema. RESPIRATORY: Denies cough or dyspnea. GASTROINTESTINAL: Denies abdominal pain, nausea, vomiting, or diarrhea. GENITOURINARY: Denies dysuria or hematuria. SKIN: Reports abscess to left forearm MUSCULOSKELETAL: Denies back pain, joint pain, or myalgia. NEUROLOGIC: Denies headache, numbness, dizziness, or weakness. PSYCHIATRIC: Denies anxiety or depression. [facility] Past Medical History Medical History No significant medical problems Surgical History Surgical History No significant past surgical history Family History Family History Father No problems noted. Mother Acute myocardial infarction Social History Social History Smoking packs per day: 1 Smoking cigarettes per day: 20.0 Years smoked: 25 Smoking pack-years: 25.00 Smoking status: Current every day smoker Tobacco type: cigarettes Alcohol intake: current Substance use: never Substance use type: does not use Gender identity (if verbalized by the patient): Male Spiritual care concerns: No Exam Narrative: GENERAL: Well-appearing, well-nourished, no physical limitations, and in no acute distress. HEAD: Normocephalic, atraumatic. EYES: Conjunctivae normal, PERRLA and EOMI. CHEST: Clear to auscultation. No respiratory distress. No wheezes rales or rhonchi. No tenderness. HEART: Regular rate and rhythm. No murmur heard. Normal peripheral pulses. ABDOMEN: Soft, nontender, nondistended, normal active bowel sounds. BACK: No CVA tenderness; No cervical/thoracic/lumbar tenderness, step-offs, bony abnormality; FROM EXTREMITIES: Normal range of motion. No edema. No clubbing or cyanosis SKIN: 4 cm circular fluctuant abscess with surrounding erythema to the left forearm draining scant amount of purulent drainage. NEURO: No focal deficits. Alert and oriented x3. MAEW. CN's II-XI intact bilaterally, normal gait PSYCH: Cooperative. Normal mood and affect. Course Course Emergency Course: 1814: Patient is refusing IV. We will send patient home on a course of antibiotics. Vital Signs Vital signs: Vital Signs Temperature 36.6 C 10/24/21 17:18 Pulse Rate 104 H 10/24/21 17:18 Respiratory Rate 16 10/24/21 17:18 Blood Pressure 152/102 H 10/24/21 17:18 Pulse Oximetry 99 10/24/21 17:18 Oxygen Delivery Room Air 10/24/21 17:18 Temperature 36.6 C 10/24/21 17:18 Pulse Rate 104 H 10/24/21 17:18 Respiratory Rate 16 10/24/21 17:18 Blood Pressure 152/102 H 10/24/21 17:18 Pulse Oximetry 99 10/24/21 17:18 Oxygen Delivery Room Air 10/24/21 17:18 Medical Decision Making Vital Signs Vital Signs: Vital Signs Temperature 36.6 C 10/24/21 17:18 Pulse Rate 104 H 10/24/21 17:18 Respiratory Rate 16 10/24/21 17:18 Blood Pressure 152/102 H 10/24/21 17:18 Pulse Oximetry 99 10/24/21 17:18 Oxygen Delivery Room Air 10/24/21 17:18 Temperature 36.6 C 10/24/21 17:18 Pulse Rate 10
== END 2021-10-24 18:38 | disposition home or self-care (01) ==
LOC: ANHED 18:20
PROVIDERS: Emergency Provider Nurse Practitioner Family
DX: L02.414 Cutaneous abscess of left upper limb (principal); F17.210 Nicotine dependence, cigarettes, uncomplicated
CPT/HCPCS: 99283

== ENCOUNTER 2022-06-04 20:00 | Emergency (ER) | payer OTHER, SELFPAY ==
--- NOTE | ~2022-06-04 | XR_ITS ---
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 RESULT: Lines, tubes, and devices: None. Lungs and pleura: Low lung volumes. Patchy airspace disease in the right medial upper lung and bilat eral lower lungs. Bibasilar scarring/atelectasis. Cardiomediastinal silhouette: Stable. Other: No acute osseous or upper abdominal finding. IMPRESSION: Low lung volumes with patchy opacities likely represent crowding and atelectasis. Mild edema/infectio n not excluded. Reviewed, dictated and finalized at location K. 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 Mild edema/infection not excluded.
--- NOTE | ~2022-06-04 | CT_ITS ---
Clinical Indication: Chest pain, dyspnea CT Scan of the Chest with Contrast: Technique: Contiguous sections were acquired throughout the chest after intravenous administration of 100 cc of Omnipaque 350. Dose reduction technique was used on this scan by utilizing automated expos ure control and iterative reconstruction technique. The dose-length product (DLP) was 426.86 mGy-cm. COMPARISON: 11/27/2020 Findings: There is no evidence of any significant mediastinal, hilar or axillary lymphadenopathy. There is no f illing defect in the pulmonary arterial tree to suggest pulmonary embolus. There is no evidence of ao rtic dissection or aneurysm. There is no evidence of pleural or pericardial effusion. There are focal areas of peribronchovascular thickening in the bilateral infrahilar regions, which co uld reflect postinflammatory change. No other pulmonary abnormality seen. Images through the upper abdomen reveal 2.8 cm hypodense mass at the peripheral aspect of the right h epatic lobe. Impression: No evidence of pulmonary embolus, aortic dissection, or aortic aneurysm. Focal areas of peribronchovascular thickening in the infrahilar regions, which could reflect postinfl ammatory change. No definite acute pulmonary abnormality seen. 2.8 cm hypodense right hepatic lobe mass. Based on appearance from prior exam, this is most likely he mangioma. Reviewed, dictated and finalized at [facility]. ING HAND Impression: No evidence of pulmonary embolus, aortic dissection, or aortic aneurysm. Focal areas of peribronchovascular thickening in the infrahilar regions, which could reflect postinflammatory change. No definite acute pulmonary abnormality seen. 2.8 cm hypodense right hepatic lobe mass. Based on appearance from prior exam, this is most likely hemangioma.
--- NOTE | 2022-06-04 20:04 | ECG_ITS ---
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
[2022-06-04 20:05] VITALS: BP 146/89; PULSE 100; RESP 12; TEMP 36.4; O2SAT 100
[2022-06-04 20:21] LABS: Basophils Absolute Auto 0.1 K/mm3 (0.0-0.1); Basophils Percent Auto 0.7 % (0.2-1.2); Eosinophils Absolute Auto 0.3 K/mm3 (0-0.3); Eosinophils Percent Auto 3.6 % (0-4.4); Hematocrit 44.7 % (42.0-52.0); Hemoglobin 15.4 g/dL (14.0-18.0); Immature Granulocyte Absolute 0.02 K/mm3 (0.00-0.031); Immature Granulocyte Percent A 0.2 % (0-0.5); Lymphocytes Absolute Auto 3.36 K/mm3 (0.9-3.2); Lymphocytes Percent Auto 37.6 % (18.3-44.2); Mean Corpuscular HGB Conc 34.5 g/dl (32-36); Mean Corpuscular Hemoglobin 29.7 pg (26-34); Mean Corpuscular Volume 86.1 fl (80-100); Mean Platelet Volume 9.4 fl (7.4-10.4); Monocytes Absolute Auto 0.8 K/mm3 (0.1-0.6); Monocytes Percent Auto 9.1 % (2.6-8.5); Neutrophils Absolute Auto 4.4 K/mm3 (1.3-6.7); Neutrophils Percent Auto 48.8 % (45.5-73.1); Platelet Count Result 262 k/mm3 (150-375); Red Blood Count 5.19 M/mm3 (4.6-6.20); Red Cell Distribution Width 13.3 % (11.5-14.5); White Blood Count 8.9 K/mm3 (4.5-10.0)
[2022-06-04 20:31] LABS: INR 1.1; Prothrombin Time 13.5 Seconds (11.1-14.7)
[2022-06-04 20:32] LABS: Alanine Aminotransferase 44 U/L (6-50); Alkaline Phosphatase 57 U/L (38-126); Anion Gap 5 mmol/L (8-16); Aspartate Amino Transferase 31 U/L (17-59); Bilirubin,Total 0.4 mg/dL (0.2-1.3); Blood Urea Nitrogen 20 mg/dL (9-20); Calcium 8.6 mg/dL (8.4-10.2); Carbon Dioxide 27 mmol/L (22-30); Chloride 103 mmol/L (98-107); Estimated CRCL calculation 98 ml/min; Estimated Glomerular Filt Rate > 60; Glucose 102 mg/dL (65-110); Lipase 72 U/L (23-300); Potassium 4.1 mmol/L (3.4-5.0); Sodium 135 mmol/L (137-145)
[2022-06-04 20:33] LABS: Partial Thromboplastin Time 24.2 SECONDS (22.3-36.8)
[2022-06-04 20:43] LABS: Troponin I < 0.012 ng/mL (0.000-0.034)
[2022-06-04 21:00] VITALS: BP 134/95; PULSE 93; RESP 16; O2SAT 99
--- NOTE | 2022-06-04 21:05 | ED.CHESTPAIN ---
HPI - Chest Pain General Chief Complaint: Chest Pain Stated Complaint: chest pain Time Seen by Provider: 06/04/22 20:44 Source: RN notes reviewed History of Present Illness HPI narrative: Patient presents emergency department from home for chest pain. Patient states pain is located over the left lateral superior chest. Pain is described as a pressure in nature and radiates into the back as well as in the left arm. States the pain has been present for the past 2 weeks and nothing seems to make the pain better or worse. \. Patient states he does have a history of a previous cardiac stent numerous years ago but cannot specifically tell me when and states that he does not follow with cardiology. He states the pain does seem to go down his left back he denies any fevers or chills states he does have mild shortness of breath with the symptoms Related Data Allergies Allergy/AdvReac Type Severity Reaction Status Date / Time No Known Allergies Allergy Verified 04/25/21 19:52 Review of Systems Review of Systems: Gen.: Denies fevers or chills ENT: Denies congestion Respiratory: Reports shortness of breath CV: Reports chest pain GI: Denies abdominal pain nausea, emesis Musculoskeletal: Denies back pain or muscle pain Neuro: Denies numbness, tingling, weakness or focal weakness Skin: Denies rash Except as documented, all other systems reviewed and negative [facility] Past Medical History Medical History (Updated 06/05/22 @ 00:31 by Sarmad Bullard DO) Coronary artery disease No significant medical problems Surgical History Surgical History No significant past surgical history Family History Family History Father No problems noted. Mother Acute myocardial infarction Social History Social History Smoking packs per day: 1 Smoking cigarettes per day: 20.0 Years smoked: 25 Smoking pack-years: 25.00 Smoking status: Current every day smoker Tobacco type: cigarettes Alcohol intake: current Substance use: never Substance use type: does not use Gender identity (if verbalized by the patient): Male Spiritual care concerns: No Exam Narrative: APPEARANCE: No acute distress, nontoxic, resting in bed EYES: EOMI HEENT: Normocephalic, atraumatic, OMM RESPIRATORY: No respiratory distress Clear to auscultation bilaterally with no rhonchi wheezing or rales. CARDIOVASCULAR: Regular rate and rhythm without murmurs rubs or gallops. Radial pulse 2+ bilaterally Chest: Tender palpation left anterior superior chest wall pain increased with deep inspiration ABDOMINAL: Soft, nontender, nondistended, no rebound or guarding MUSCULOSKELETAl: Moves all extremities. No clubbing, cyanosis or edema. NEURO: Awake and alert. Following commands, speech normal, no focal deficits SKIN:: Warm, dry. No rashes lesions or abrasions PSYCHIATRIC: Normal affect/mood, Course Course Emergency Course: : Discussed with Dr. Crowell for cardiology presentation work-up we discussed previous coronary artery disease as well as 2 negative troponins and constant pain for the past 2 weeks this time feels patient may be discharged home with follow-up as an outpatient in the office Discussed with patient results of workup and diagnosis. Discussed need for follow-up with primary care, proper use of medication, and reasons to return to the emergency department. Patient understands and agrees to current treatment plan Vital Signs Vital signs: Vital Signs Temperature 97.6 F 06/04/22 20:05 Pulse Rate 100 06/04/22 20:05 Respiratory Rate 12 06/04/22 20:05 Blood Pressure 146/89 H 06/04/22 20:05 Pulse Oximetry 100 06/04/22 20:05 Oxygen Delivery Room Air 06/04/22 20:05 Temperature 97.6 F 06/04/22 20:05 Pulse Rate 90 06/04/22 22:26 Respiratory Rate 15
[2022-06-04 21:48] LABS: D Dimer 5.21 ug/mL (<0.48)
[2022-06-04 22:26] VITALS: BP 133/92; PULSE 90; RESP 15; O2SAT 99
[2022-06-04 23:38] LABS: Influenza A QL RT-PCR Negative (Negative); Influenza B QL RT-PCR Negative (Negative); SARS-CoV-2 RNA PCR Negative
[2022-06-04 23:52] LABS: Troponin I < 0.012 ng/mL (0.000-0.034)
[2022-06-05 01:01] VITALS: BP 148/86; PULSE 87; RESP 18; O2SAT 100
== END 2022-06-05 01:03 | disposition home or self-care (01) ==
PROVIDERS: Emergency Provider Emergency Medicine
DX: R07.89 Other chest pain (principal); Z20.822 Contact with and (suspected) exposure to COVID-19
CPT/HCPCS: 36415; 71046; 71275; 80053; 83690; 84484; 85025; 85380; 85610; 85730; 87636; 93005; 99284; A9270; Q9967

== ENCOUNTER 2022-07-02 13:40 | Outpatient (CLI) | payer OTHER, SELFPAY ==
[2022-07-02 14:31] LABS: Hematocrit 44.3 % (42.0-52.0); Mean Corpuscular HGB Conc 33.9 g/dl (32-36); Mean Corpuscular Hemoglobin 29.8 pg (26-34); Mean Corpuscular Volume 87.9 fl (80-100); Mean Platelet Volume 9.6 fl (7.4-10.4); Platelet Count Result 256 k/mm3 (150-375); Red Blood Count 5.04 M/mm3 (4.6-6.20); Red Cell Distribution Width 13.5 % (11.5-14.5); White Blood Count 7.9 K/mm3 (4.5-10.0)
[2022-07-02 14:34] LABS: Appearance Urine Clear (Clear); Bilirubin Urine Negative (Negative); Blood Urine Negative (Negative); Color Urine Yellow (Yellow); Glucose Urine UA Negative (Negative); Ketones Urine Trace mg/dL (Negative); Leukocyte Esterase Ur Negative LEU/UL (NEGATIVE); Nitrate Urine Negative (Negative); Protein Urine Negative (Negative); Specific Grav Ur 1.026 (1.001-1.035); Urobilinogen Urine 0.2 mg/dL (<2.0)
[2022-07-02 14:39] LABS: Alanine Aminotransferase 70 U/L (6-50); Albumin Level 4.1 g/dL (3.5-5.1); Alkaline Phosphatase 67 U/L (38-126); Aspartate Amino Transferase 36 U/L (17-59); Bilirubin,Total 0.4 mg/dL (0.2-1.3); Cholesterol 155 mg/dL (0-200); HDL Direct 59 mg/dL; Triglycerides 95 mg/dL (<150)
[2022-07-02 14:43] LABS: Rheumatoid Factor < 8.6 IU/ML (<12)
[2022-07-02 14:50] LABS: LDL Cholesterol Direct 76 mg/dL
[2022-07-02 14:56] LABS: Add Urine Microscopic? NO
[2022-07-02 15:06] LABS: Hemoglobin A1C 5.7 % (<5.7)
[2022-07-02 15:08] LABS: Creatinine Urine 173.7 mg/dL
[2022-07-02 15:11] LABS: Prostate Specific Antigen 0.6 ng/mL (< OR = 4.0)
[2022-07-02 15:12] LABS: MALB Creatinine Ratio 4.3 mg/g (0-30); Microalbumin Urine Random 7.4 mg/L (0-16.7)
[2022-07-02 15:13] LABS: Erythrocyte Sedimentation Rate 4 mm/hr (0-20)
[2022-07-02 15:22] LABS: Vitamin D 25 Hydroxy 37.8 ng/mL
[2022-07-02 15:37] LABS: Hepatitis B Surface Antigen Negative (Negative)
[2022-07-02 15:42] LABS: HAV RESULT Negative (Negative); Hepatitis B Core IgM Result Negative (Negative)
[2022-07-02 15:54] LABS: Hepatitis C Virus Antibody Negative (Negative)
== END 2022-07-02 13:41 | disposition home or self-care (01) ==
PROVIDERS: Visit Provider Emergency Medicine
DX: Z00.00 Encounter for general adult medical examination without abnormal findings (principal); I10 Essential (primary) hypertension
CPT/HCPCS: 36415; 80061; 80074; 80076; 81003; 82043; 82306; 83036; 84153; 84439; 84443; 85027; 85652; 86038; 86430

== ENCOUNTER 2022-07-24 12:32 | Outpatient (CLI) | payer OTHER, SELFPAY ==
--- NOTE | ~2022-07-24 | US_ITS ---
Limited Abdominal Sonogram: Real-time sonographic imaging of the right upper quadrant was performed. Clinical History: Liver mass Findings: The liver appears normal with no evidence of mass lesion or bile duct dilatation. Main por shante vein demonstrates normal direction of flow. The gallbladder is absent, compatible prior cholecyst ectomy. The common bile duct measures 5 mm. The visualized pancreas, aorta, and IVC are unremarkable . Impression: Status post cholecystectomy. Hepatic hemangioma seen on prior CT scans is not clearly identified sonographically. Reviewed, dictated and finalized at [facility]. Impression: Status post cholecystectomy. Hepatic hemangioma seen on prior CT scans is not clearly identified sonographic ally.
== END 2022-07-24 12:33 | disposition home or self-care (01) ==
PROVIDERS: PCP Emergency Medicine; Visit Provider Emergency Medicine
DX: R07.9 Chest pain, unspecified (principal); D18.03 Hemangioma of intra-abdominal structures
CPT/HCPCS: 76705

== ENCOUNTER 2022-10-23 18:42 | Emergency (ER) | payer OTHER, SELFPAY ==
[2022-10-23] VITALS (8 sets, daily range): BP systolic 142–155; BP diastolic 85–98; PULSE 80–93; RESP 0–15; TEMP 36.2; O2SAT 92–100
--- NOTE | ~2022-10-23 | CT_ITS ---
EXAMINATION: CT brain wo con DATE: 10/23/2022 19:42 INDICATION: Altered mental status. Unresponsive. TECHNIQUE: Computed tomography (CT) of the head was performed without intravenous contrast. The mA wa s adjusted according to patient size. Iterative reconstruction technique was employed. The dose-lengt h product was 605.33 mGy-cm. COMPARISON: Head CT 04/12/2020 FINDINGS: There is no intracranial hemorrhage, acute infarction, or abnormal intracranial mass lesion . The ventricles are normal in size. There is mucosal thickening in the paranasal sinuses. The mastoi d air cells are normal. The orbits are normal. IMPRESSION: 1. Normal brain. Reviewed, dictated and finalized at location E. IMPRESSION: 1. Normal brain.
--- NOTE | ~2022-10-23 | XR_ITS ---
EXAMINATION: XR chest 1V DATE: 10/23/2022 20:04 INDICATION: Chest pain. TECHNIQUE: A single frontal view of the chest was obtained. COMPARISON: Chest 2 views 06/04/2022 FINDINGS: The chest demonstrates clear lungs without pneumonia, pleural effusion, or pneumothorax. Th e heart size is normal. There is an old healed fracture of left clavicle. IMPRESSION: 1. No acute cardiopulmonary disease. Reviewed, dictated and finalized at location E.
--- NOTE | 2022-10-23 18:48 | ECG_ITS ---
Measurements Intervals [place] Rate: 92 P: 49 FL: 139 QRS: 21 QRSD: 100 T: 42 QT: 362 QTc: 449 Interpretive Statements SINUS RHYTHM POSSIBLE LEFT ATRIAL ENLARGEMENT INCOMPLETE RIGHT BUNDLE BRANCH BLOCK BASELINE ARTIFACT- I, III BORDERLINE ECG COMPARED TO ECG 06/04/2022 20:10:55 NO SIGNIFICANT CHANGES Electronically Signed On 10-23-2022 20:30:27 CDT by Moises Porter D.O.
--- NOTE | 2022-10-23 19:15 | PC.NURSE ---
Patient report given to KRIS Quintero. All questions answered and care of patient transferred.
[2022-10-23 19:17] LABS: Basophils Absolute Auto 0.1 K/mm3 (0.0-0.1); Basophils Percent Auto 0.7 % (0.2-1.2); Eosinophils Absolute Auto 0.3 K/mm3 (0-0.3); Eosinophils Percent Auto 3.1 % (0-4.4); Hematocrit 45.3 % (42.0-52.0); Hemoglobin 15.3 g/dL (14.0-18.0); Immature Granulocyte Absolute 0.02 K/mm3 (0.00-0.031); Immature Granulocyte Percent A 0.2 % (0-0.5); Lymphocytes Absolute Auto 3.25 K/mm3 (0.9-3.2); Lymphocytes Percent Auto 31.8 % (18.3-44.2); Mean Corpuscular HGB Conc 33.8 g/dl (32-36); Mean Corpuscular Hemoglobin 29.4 pg (26-34); Mean Corpuscular Volume 87.1 fl (80-100); Mean Platelet Volume 9.6 fl (7.4-10.4); Monocytes Absolute Auto 0.7 K/mm3 (0.1-0.6); Neutrophils Absolute Auto 5.9 K/mm3 (1.3-6.7); Neutrophils Percent Auto 57.2 % (45.5-73.1); Platelet Count Result 269 k/mm3 (150-375); Red Cell Distribution Width 13.7 % (11.5-14.5); White Blood Count 10.2 K/mm3 (4.5-10.0)
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
[2022-10-23 19:27] LABS: Alanine Aminotransferase 44 U/L (6-50); Albumin Level 4.1 g/dL (3.5-5.1); Alkaline Phosphatase 54 U/L (38-126); Anion Gap 9 mmol/L (8-16); Aspartate Amino Transferase 30 U/L (17-59); Bilirubin,Total 0.7 mg/dL (0.2-1.3); Blood Urea Nitrogen 17 mg/dL (9-20); Calcium 8.9 mg/dL (8.4-10.2); Carbon Dioxide 23 mmol/L (22-30); Chloride 108 mmol/L (98-107); Estimated CRCL calculation 108 ml/min; Estimated Glomerular Filt Rate > 60; Glucose 131 mg/dL (65-110); Potassium 3.1 mmol/L (3.4-5.0); Sodium 140 mmol/L (137-145)
[2022-10-23 19:28] LABS: Ethanol < 10 mg/dL (<10); INR 1.1; Prothrombin Time 14.3 Seconds (11.1-14.7)
[2022-10-23 19:29] LABS: Partial Thromboplastin Time 29.9 SECONDS (22.3-36.8)
[2022-10-23 19:39] LABS: Creatine Kinase 184 U/L (55-170)
[2022-10-23 19:53] LABS: Troponin I < 0.012 ng/mL (0.000-0.034)
[2022-10-23] MEDS: POTASSIUM CHLORIDE 20 MEQ PACKET (FOR LIQUID) 40 MEQ PO (20:27)
--- NOTE | 2022-10-23 20:45 | PC.NURSE ---
pt has refused UA x2.
--- NOTE | 2022-10-23 20:52 | PC.NURSE ---
pt is ax0x4, pt is refusing all txts and especially UA. pt is refusing UA. abc are wnl nad. airway is patent,spontanoues and srlf maintained. pt denies pain. pt only drank 1/4 of the KCL
[2022-10-23] MEDS: LACTATED RINGERS 1,000 ML 999 ML IV CONT (20:56)
--- NOTE | 2022-11-01 00:41 | PC.NURSE ---
late entryt Iv stopped at discharge
== END 2022-10-23 22:29 | disposition home or self-care (01) ==
PROVIDERS: Emergency Medicine; Emergency Provider Emergency Medicine; PCP Emergency Medicine
DX: T67.5XXA Heat exhaustion, unspecified, initial encounter (principal); E86.0 Dehydration; I25.10 Atherosclerotic heart disease of native coronary artery without angina pectoris; F17.210 Nicotine dependence, cigarettes, uncomplicated; I45.10 Unspecified right bundle-branch block; R94.31 Abnormal electrocardiogram [ECG] [EKG]
CPT/HCPCS: 36415; 70450; 71045; 80053; 80307; 82550; 84484; 85025; 85610; 85730; 93005; 96360; 99284; A9270; J7120